=== PATIENT | female | born 1950 | race Caucasian/White ===

== ENCOUNTER → 2021-11-22 13:18 | Outpatient (CLI) | payer MEDICARE, SELFPAY ==
[2021-11-22 15:57] LABS: Add Manual Diff / Slide Review NO; Basophils Absolute Auto 0 /uL (0-100); Basophils Percent Auto 0.6 % (0-2); Eosinophils Absolute Auto 300 /uL (0-450); Hematocrit 39.6 % (36-46); Hemoglobin 13.9 g/dL (12.0-16.0); Lymphocytes Absolute Auto 1100 /uL (1100-4500); Lymphocytes Percent Auto 13.8 % (25-40); Mean Corpuscular HGB Conc 35.1 % (30-36); Mean Corpuscular Hemoglobin 32.7 PG (26-34); Mean Corpuscular Volume 92.9 fL (80-100); Monocytes Absolute Auto 800 /uL (0-900); Monocytes Percent Auto 9.7 % (3-14); Neutrophils Absolute Auto 5800 /uL (1500-7000); Neutrophils Percent Auto 71.9 % (50-75); Platelet Count 300 X10^3/uL (150-400); Red Blood Cell Count 4.26 X10^6/uL (4.0-5.2); Red Cell Distribution Width 13.2 % (11.6-14.8); White Blood Cell Count 8.1 X10^3/uL (4.5-11.0)
[2021-11-22 16:14] LABS: Hemoglobin A1C% w Est Avg Glu 5.5 % (4.0-6.0)
[2021-11-22 17:44] LABS: BUN Creatinine Ratio 15.2 (6-22); Blood Urea Nitrogen 14 mg/dL (7-17); Calcium 8.7 mg/dL (8.4-10.2); Carbon Dioxide 26 mmol/L (22-32); Chloride 107 mmol/L (98-107); Estimated Glomerular Filt Rate > 60 mL/min (>60); Glucose 125 mg/dL (80-110); HEMOLYSIS < 15 (0-50); Potassium 4.2 mmol/L (3.4-5.1); Sodium 138 mmol/L (137-145)
== END ==
PROVIDERS: Referring Provider Orthopaedic Surgery Orthopaedic Surgery of the Spine; Visit Provider Orthopaedic Surgery Orthopaedic Surgery of the Spine
DX: Z01.818 Encounter for other preprocedural examination (principal); R73.9 Hyperglycemia, unspecified; Z01.812 Encounter for preprocedural laboratory examination
CPT/HCPCS: 36415; 80048; 83036; 85025; 93005

== ENCOUNTER 2021-12-10 06:17 | Day surgery (SDC) | payer MEDICARE, SELFPAY ==
[2021-11-30 12:53] VITALS: BMI 33.2
[2021-12-10] VITALS (19 sets, daily range): BP systolic 119–160; BP diastolic 72–101; PULSE 75–90; RESP 10–18; TEMP 36.1–36.6; O2SAT 94–98; BMI 33.2
[2021-12-10 07:02] LABS: COVID19 -Nasal RAPID Negative (Negative)
[2021-12-10] MEDS: LACTATED RINGERS 1,000 ML 42 ML IV ×2 (07:20→10:01)
--- NOTE | 2021-12-10 07:46 | PM.PREOP ---
Pre-operative Note COVID-19 COVID-19 status: Negative Result date/Date tested (Pos, Neg/Pending): 12/09/21 Criteria for continued procedure: Expected advancement of disease process, Possibility delay results in more complex future surgery or treatment, Increased loss of function, Continuing or worsening of significant or severe pain, Deterioration of the patient's condition or overall health and Delay expected to result in less-positive ultimate med/surg outcome Interval Note History & Physical reviewed/Exam performed by Physician: Yes Changes to H&P: No
[2021-12-10] MEDS: CEFAZOLIN 2 GM/100 ML PREMIX 100 ML IV ×2 (08:00→16:18)
--- NOTE | 2021-12-10 08:30 | SUR.OPER ---
Prone on spine table, head in foam head support, padded chest and pelvic supports, gel pad at knees, lower legs supported by pillows; nipples, genitalia and toes free of pressure, arms secured on foam padded arm boards at <90 degrees abduction. Tape over blanket at thigh secured to table. Gel pad between heels.
--- NOTE | 2021-12-10 10:19 | SUR.PREOP ---
12/10/21- notes on consent left and read by Md-patient feels left rib fractured in incident last week,no xrays done. Also noted to Dr De Oliveira, and patinet speaking with him now on issue. Also , pt acknowledged-no blood products per JW. MD's aware.
--- NOTE | 2021-12-10 11:00 | DI.RAD.S_ITS ---
PROCEDURE: XR LUMBAR SPINE 2-3V INDICATIONS: L3-4, L4-5 TLIF ROBOT TECHNIQUE: 2 fluoroscopic intraoperative images obtained. COMPARISON: None. FINDINGS: Two fluoroscopic intraoperative images obtained showing changes of lower lumbar spine fusion. Rods, pedicle screws, and interbody spacers are present. IMPRESSION: Intraprocedural fluoroscopy was provided for guidance and anatomical localization. Please see the procedure report for further details. Dictated by: Ivan Marks M.D. on 12/10/2021 at 21:10 Approved by: Ivan Marks M.D. on 12/10/2021 at 21:13
[2021-12-10] MEDS: BUPIVACAINE 0.25% (PF) 30 ML, EPINEPHrine 0.3 MG INJ (12:24)
[2021-12-10] MEDS: BUPIVACAINE LIPOSOME 266 MG/20 ML VIAL INJ (12:24)
--- NOTE | 2021-12-10 12:35 | PM.OP.1 ---
Operative Date/Time/Diagnoses Date of procedure: 12/10/21 Time of procedure: 07:45 Pre-op diagnosis: 1. L3-4, L4-5 spondylolisthesis 2. L3-4, L4-5 spinal stenosis with neurogenic claudication Post-op diagnosis: same Procedure & Clinicians Procedure: 1. L3-4, L4-5 Postero-lateral and posterior interbody fusion 2. L3-4, L4-5 interbody cage placement. 3. L3-4, L4-5 decompressive laminectomy with bilateral facetecomies 4. L3-4, L4-5 Posterior segmental instrumentation 5. [place] of bone marrow from iliac crest 6. Utilization of microsurgical technique and operating microscope 7. Utilization of robotic assisted navigation Same procedure as scheduled: Yes Indications: Patient has been having chronic back pain and worsening lumbar radiculopathy and neurogenic claudication. Patient failed multiple conservative management with worsening pain weakness and numbness in her lower extremity. Patient has been having difficulty performing activity of daily living. After discussing risks benefits of treatment options, patient elected proceed with surgery. Surgeon: Rich Gutierrez Complex Care Nurse: Esther Constantino Click Yes if Unassisted: No Anesthesia Type: General Operative Notes Closure Type: primary Specimen(s): none sent Prosthetic devices, grafts, tissues, transplants, or devices: Globus CREO MIS screws, Rise cages Applied: catheter Estimated Blood Loss (mL): 150 Blood products transfused: none Procedure in detail: Patient was seen in the preoperative area. Risks and benefits of the surgery was discussed with the patient. Informed consent was obtained from the patient and placed in the chart. Surgical site was marked. Patient was taken to the operative room. General anesthesia was administered. Prophylactic antibiotic was given to the patient less than 30 min before the incision was made. Patient was placed into a prone position on the Wily table. Patient's back was then prepped and draped in the sterile fashion. Time-out was performed at this time. After patient was prepped and draped, patient's PSIS was palpated and marked bilaterally. Small 1 cm incision was made over the PSIS for placement of the reference probes. Two trocar was placed into the PSIS 1 on each side. The reference probe was attached to the trocar of the reference apparatus. At this time the C-arm imaging was used to confirm AP and lateral of L3, L4-L5 vertebrae and merged the C-arm imaging using the [email or web address] robotic navigation system with the CT of the lumbar spine. After successful merging was completed and confirmed, skin marker was used to tamia out the skin incision using the [employer] robotic arm. Bilateral incision was made at this time. Pre templated trajectory was used and guided using the [email or web address] robotic navigation system for bilateral L3 L4, L5 pedicle screw placement. This was done by using the robotic arm to guide the high-speed bur to make a cortical entry point. Next a drill was placed also using the robotic arm and guided using the navigation system drilling partially through bilateral L3, L4, L5 pedicles. Next L3, L4, L5 pedicle screws it was pre templated and measured was placed onto the power swing driver and inserted into the pedicles bilaterally. After all 6 screws were placed C-arm imaging was taken of both AP and lateral to confirm the placement. Excellent placement of the screws were confirmed and a matched precisely with the pre planned screw placement using the navigation system. MARs retractor was inserted using [employer] guidence. Globus MARS retractors was placed inside the incision and docked onto the L3, L4 lamina. Using microsurgical technique and operating microscope, a L3, L4 laminectomy and L3-4, L4-5 facetectomy was performed using a [place] rongeur. Patient was found have severe lateral recess and neural foramen stenosis which was fully decompressed after the laminectomy facetectomy. More than 75% of the facets were removed during the process of decompression rendering L3-4, L4-5 level grossly unstable and required a fusion procedure at the same time. Patient was found have severe central and foraminal stenosis at both levels, which was fully decompressed after the laminectomy facetectomy was completed. The disc space at L3-4, L4-5 was identified, and a total diskectomy was performed at L3-4, L4-5 level. The endplates were decorticated using a rasp and shaver. The total diskectomy and decortication was performed at L3-4, L4-5 level in order to to accomplish a L3-4, L4-5 fusion. The local bone from the laminectomy and facetectomy was saved for local bone grafting. After the total diskectomy and decortication was completed, Trifecta bone graft material was combined with local bone that was harvested earlier. At this time, a separate skin is incision was made over the iliac crest. A Jamshidi needle was inserted into the iliac crest through a separate skin incision. 5 cc of bone marrow aspiration was obtained through the separate skin incision using a Jamshidi needle from the iliac crest. The bone marrow aspiration was combined with local bone and the Trifecta bone grafting material. The bone grafting material was placed into the L3-4, L4-5 interbody space along with expandable cages. One cage each was inserted into the L3-4 L4-5 interbody space along with bone graft material. The cage was expanded to its maximum height using the torque limiting screwdriver. The disc preparation as well as the cage insertion were also performed under navigation guidance. After the cage was placed, AP and lateral C-arm imaging was taken to confirm placement of the cage and excellent position was confirmed. Globus MARS retractor was inserted and docked onto the L3-4, L4-5 posterolateral gutter on the right side. Using the power drill, posterior-lateral decortication was performed at L3-4, L4-5 level until bleeding cortical bone was identified. The remaining bone grafting material was placed into the L3-4, L4-5 posterior lateral gutter he order to accomplish posterolateral fusion at the L3-4, L4-5 level. At this time the tulips were attached to the L3, L4-L5 pedicle screw shanks. After measuring the length of the rods, they were inserted into the t[place]ips of the pedicle screws and locked in place using locking caps and torque limiting screwdriver bilaterally. Total 6 caps and 2 titanium rods was used in order to complete the posterior instrumentation construct. After all the hardware was placed, and confirmed with AP and lateral C-arm imaging, the wound was then irrigated with sterile normal saline and packed with Ray-Mabel gauze for 3 min to accomplish hemostasis. After the gauze was removed the deep fascia was closed with #1 Vicryl suture. The subcutaneous layer was closed with 2-0 Vicryl. The skin was closed with skin kitty. Patient tolerated the procedure well. There were no complications. Neuro monitoring system was used to monitor patient's neurologic status throughout entire procedure. There was no disturbance of the neural monitoring signals throughout the case. Complications: none Post-operative Condition: stable Disposition: PACU Plan for aftercare: Admit to inpatient hospital
[2021-12-10] MEDS: hydrOXYzine 50 MG/ML INJ IM (12:54)
[2021-12-10] MEDS: fentaNYL 100 MCG/2 ML INJ IV ×2 (13:00→13:19)
[2021-12-10] MEDS: HYDROMORPHONE 2 MG INJ IV (13:08)
[2021-12-10] MEDS: OXYCODONE/ACETAMINOPHEN 5/325 TABLET 1 TAB PO (13:56)
--- NOTE | 2021-12-10 15:42 | PC.NURSE ---
Assess- Patient is alert and oriented x3, but sleepy. States that her pain level is 9/10 but she falls right back to sleep. She is tolerating her LR ivf. Dressing to lower back is cdi, she does have a few scabbed area's to her left side of lower back from shingles that are healing. Patient is resting comfortably.
[2021-12-10] MEDS: OXYCODONE IR 5 MG TABLET 10 MG PO ×2 (16:18→20:43)
--- NOTE | 2021-12-10 16:35 | PT.IPNOTE ---
Patient is very sleepy this afternoon after surgery. She is not ready for PT evaluation. Will plan to see her tomorrow for evaluation.
--- NOTE | 2021-12-10 17:03 | PC.NURSE ---
Addendum entered by Dewey Ray R.N. 12/10/21 18:30: Attempted to call dr to advise that RT found no significant findings on EKG. Findings are in chart. Original Note: Pt brought up from PACU. Patient complaining of terrible pain, RN explained that we will wait a bit to give more pain meds, as pt just received some .5mg dilaudid, 100 fentynal, 50 vistaril and 5mg percocet. RT came in to give albuterol but patient refused d/t pain. RN gave 5mg oxycodone as pt was very adamant on needing pain meds and in 10/10 pain. RN educated pt on the fact that pain will not be zero on POD 0 but we will try our best to manage it. Pt has a left rib fx from paddleboarding last week. Pt has a few healed scabs of shingles on left bottom area. dressing from surgery is CDI.
[2021-12-10] MEDS: AMLODIPINE 5 MG TABLET PO (18:11)
[2021-12-10] MEDS: atenoloL 50 MG TABLET PO (18:11)
--- NOTE | 2021-12-10 18:18 | PC.NURSE ---
Addendum entered by Sarahi Acevedo R.N. 12/10/21 18:32: EKG obtained, phoned, with no call back. EKG put in patients chart. Patient is comfortable and denies any pain at this time. Original Note: Patient complains of substernal pain, called . We have a new order for EKG. She did have a fall prior to surgery and fractured a rib on her left side. RT will be up soon to do this.
[2021-12-10] MEDS: ALBUTEROL/IPRATROPIUM 3 ML AMPUL INH (20:25)
[2021-12-10] MEDS: BUDESONIDE 0.5 MG/2 ML NEB INH (20:25)
[2021-12-10] MEDS: DOCUSATE 100 MG CAPSULE PO (20:43)
[2021-12-10] MEDS: PANTOPRAZOLE DR 20 MG TABLET PO (20:43)
[2021-12-10] MEDS: ACETAMINOPHEN 325 MG TABLET 650 MG PO (20:45)
[2021-12-10] MEDS: SENNOSIDES 8.6 MG TABLET 17.2 MG PO (20:45)
[2021-12-11] VITALS (9 sets, daily range): BP systolic 123–142; BP diastolic 49–88; PULSE 71–86; RESP 16–18; TEMP 36.4–37.2; O2SAT 92–97
[2021-12-11] MEDS: OXYCODONE IR 5 MG TABLET 10 MG PO ×6 (00:51→20:11)
[2021-12-11] MEDS: CEFAZOLIN 2 GM/100 ML PREMIX 100 ML IV (00:51)
[2021-12-11] MEDS: DOCUSATE 100 MG CAPSULE PO ×2 (08:07→20:11)
[2021-12-11] MEDS: ALBUTEROL/IPRATROPIUM 3 ML AMPUL INH ×4 (08:30→20:04)
[2021-12-11] MEDS: BUDESONIDE 0.5 MG/2 ML NEB INH ×2 (08:35→20:04)
[2021-12-11 09:24] LABS: Hematocrit 36.3 % (36-46); Hemoglobin 12.6 g/dL (12.0-16.0)
--- NOTE | 2021-12-11 10:10 | PT.IIE ---
Current Diagnoses Spondylolisthesis, lumbar region (12/10/21) Spinal stenosis, lumbar region with neurogenic claudication (12/10/21) Surgery Performed Operation Date: 12/10/21 07:45 Actual Procedures p L3-4, L4-5 TLIF w. posterior instrumentation, L2-3 hemilaminectomy -Robot - Rich Gutierrez MD Surgical History (Last Reviewed 12/11/21 @ 10:39 by Jessica Keith PA-C) History of arthroplasty of left knee (~2019) History of arthroplasty of right knee (2004) History of gynecologic surgery History of orthopedic surgery Hx of cholecystectomy Hx of dilation and curettage Hx of neck surgery (~2012) Hx of tonsillectomy Medical History (Last Reviewed 12/11/21 @ 10:39 by Jessica Keith PA-C) Arthritis Asthma Chronic bronchitis Elevated cholesterol GERD (gastroesophageal reflux disease) HTN (hypertension) Hx of ectopic Jaundice Numbness Pulmonary embolism (2004) SCC (squamous cell carcinoma) Sciatica Spinal stenosis Transfusion of blood product refused for hindu reason Physical Therapy Inpatient Evaluation/Re-Eval M1 PT/OT-IP Prior Functional Status Start: 12/11/21 12:29 Freq: NEEDED Status: Active Protocol: Document 12/11/21 10:10 AB (Rec: 12/11/21 12:42 AB [email or web address]) Medical Review Prior Functional Status Medical History Reviewed Yes Communication able to make needs known Mobility and Gait pt stated that she is independent with all mobilities and ambulation wtihout AD Social History Household Members none Living Arrangements Apartment/Condo Number of Floors (Floors) One Floor Number of Stairs To Enter/Railing? no steps to enter Home Environment Standard Height Toilet,Walk in Shower Home Equipment Front Wheel Walker,Bedside Commode,Hand Held Shower,Grab Bars In Shower Additional Social History Comment pt has an adjustable bed pt's daughter lives in [place] and can assist pt some but will not be able to physically assist pt. Pt stated that her daughter is disabled. M2 PT-IP Current Condition Start: 12/11/21 12:29 Freq: NEEDED Status: Active Protocol: Document 12/11/21 10:10 AB (Rec: 12/11/21 12:42 AB [email or web address]) Physical Therapy Current Condition Current Condition Evaluation Date 12/11/21 Treatment Diagnosis s/p L3-4 TLIF; difficulty in walking Onset Date 12/10/21 M3 PT-IP Subjective Start: 12/11/21 12:29 Freq: NEEDED Status: Active Protocol: Document 12/11/21 10:10 AB (Rec: 12/11/21 12:42 AB [email or web address]) Subjective Physical Therapy Visit Type Type Initial Evaluation Visit Start Time 10:10 Visit Stop Time 10:56 Total Visit Minutes 46 Number of SUSTAINABLE COMMUNITIES DESIGNER Visits 0 Physical Therapy Visit Comments Patient Comments agreeable to do PT M4 PT-IP Mobility and Gait Start: 12/11/21 12:29 Freq: NEEDED Status: Active Protocol: Document 12/11/21 10:10 AB (Rec: 12/11/21 12:42 AB [email or web address]) PT-Bed Mobility Assessment Rolling Type of Rolling Log Rolling Level of Assist Maximal Assistance,1 Person Assistance,2 Person Assistance Supine to Sit Supine to Sit Maximum Assistance,1 Person Assistance,2 Person Assistance ,Head of Bed Elevated Scooting Scooting to Edge of Bed Maximum Assistance PT-Transfer Assessment Sit to and From Stand Sit to and from Stand Maximum Assistance,2 Person Assistance,Use of Upper Extremities Equipment Transfer Assistive Device Bed Rail,Front Wheeled Walker Orthotic/Prosthetic Devices or Brace: No Transfers Transfer Destination Chair Transfer Technique Stand Step Pivot Transfer Ability Level of Assist Maximum Assistance,1 Person Assistance,2 Person Assistance ,Use of Upper Extremities Comments Mobility Comments educated pt regarding back precuations and log roll bed mobility. pt completed log roll supine to sit max A and max cues. able to sit on EOB SBA.. attempted sit to stand x 3 reps and unable to stand despite max A x 2 provided. completed sit to stand again with B hands on FWW and instructed on techniques for sit to stand and required max A x 2 and max cues. step transfer to chair using FWW max a x 2 and max ceus. positioned pt on the chair. call light and table placed within reach. PT-Balance Assessment Sitting Balance and Reactions Static Sitting Balance Ability Good Dynamic Sitting Balance Ability Fair Standing Balance and Reactions Static Standing Balance Ability Poor Dynamic Standing Balance Ability Poor Device Used FWW M5 PT-IP Objective Assessments Start: 12/11/21 12:29 Freq: NEEDED Status: Active Protocol: Document 12/11/21 10:10 AB (Rec: 12/11/21 12:42 AB [email or web address]) Orientation Orientation/Cognition Level of Alertness Alert Orientation Name,Place,Situation Language Function Ability Hard of Hearing Safety Awareness Decreased Safety Awareness Memory Description Short Term Impaired Gross Range of Motion Lower Extremity ROM Assessment Within Functional Limits Strength Lower Extremity Strength Assessment Bilaterally Impaired Comments Strength Comments RLE 4-/5 LLE: 3+/5 Muscle Tone Muscle Tone WNL Yes M6 PT-IP Treatment Start: 12/11/21 12:29 Freq: NEEDED Status: Active Protocol: Document 12/11/21 10:10 AB (Rec: 12/11/21 12:42 AB [email or web address]) Physical Therapy Treatment Education Education Provided Precautions,Weight Bearing Status,Post-Op Packet,Safety M7 PT-IP Assessment and Plan Start: 12/11/21 12:29 Freq: NEEDED Status: Active Protocol: Document 12/11/21 10:10 AB (Rec: 12/11/21 12:42 AB [email or web address]) PT Summary Assessment and Plan Potential Rehabilitation Potential Fair Status of Condition at Evaluation Evolving Summary Impairments Pain,ROM,Strength,Balance, Coordination,Sensation,Tone, Cognition,Bed Mobility, Transfers,Gait,Activity Tolerance Assessment Summary pt requiring max A x 2 and max cues with mobility and unable to ambulate at this time. pt with c/o increase LBP affecting mobility. d/c plan depending on progress but at this time will require SNF rehab. Goals Bed Mobility Goal Standby Assistance Transfer Goal Standby Assistance,Front Wheeled Walker Gait Goal Standby Assistance,Four Wheel Walker Gait Distance 200 Days to Meet Goals 0 Frequency of Treatment Frequency Of Treatment Twice a Day Treatment Plan Physical Therapy Treatment Plan Bed Mobility Training,Transfer Training,Gait Training, Therapeutic Exercise,Balance Retraining,Post Op Education, Discharge Planning,Hot or Cold Pack,Neuromuscular Re-ed, Coordination Retraining,Manual Therapy Precautions Lumbar Precautions Log Roll,No Twisting,Limit Bending,Lifting Restriction of 10 lbs,Gait Belt above Incisional Area Recommendations To Nursing Amount of Assist Needed 2 Person Assist Discharge Recommendations PT Discharge Recommendations SNF Rehab Transportation Needs at Discharge Wheelchair/Cabulance
--- NOTE | 2021-12-11 10:36 | PM.PNPO.1 ---
Subjective Subjective Date Patient Seen: 12/11/21 Time Patient Seen: 07:30 Interval history: Patient is complaining of moderate to severe back pain. She was unable to get up yesterday with PT/OT. She still has a urinary catheter in place. The patient is complaining of left-sided rib pain, she injured her rib just prior to surgery. She feels that her sternum is also somewhat painful after positioning intraoperatively yesterday. She denies chest pain or shortness of breath. Exam Vital Signs (past 8 hours): - 12/11/21 03:37 12/11/21 08:00 12/11/21 08:35 Temperature 97.6 F 97.6 F Pulse Rate 78 71 Respiratory Rate 16 16 Blood Pressure 133/80 140/76 Pulse Oximetry 95 97 96 Oxygen Delivery Method Nasal Cannula Oxygen Flow Rate 2 0 0.5 Oxygen Delivery Method Nasal Cannula Oxygen Flow Rate 0.5 Narrative Exam Narrative: Pleasant 71-year-old female, resting comfortably in bed, no acute distress. Bilateral lower extremities: Motor functions are grossly intact, sensation is grossly intact to light touch, calves are soft and nontender to palpation. The distal end of her sternum, especially on the left side is mildly tender to palpation. No other gross abnormalities noted. Objective Labs Result Diagrams: 12/11/21 08:25 Labs: Laboratory Results - last 24 hr 12/11/21 08:25 Hgb 12.6 Hct 36.3 PFSH Medical History Arthritis Asthma Chronic bronchitis Elevated cholesterol GERD (gastroesophageal reflux disease) HTN (hypertension) Hx of ectopic Jaundice Numbness Pulmonary embolism (2004) SCC (squamous cell carcinoma) Sciatica Spinal stenosis Transfusion of blood product refused for lutheran reason Surgical History History of arthroplasty of left knee (~2019) History of arthroplasty of right knee (2004) History of gynecologic surgery History of orthopedic surgery Hx of cholecystectomy Hx of dilation and curettage Hx of neck surgery (~2012) Hx of tonsillectomy Social History household members: none Smoking Status: Former smoker alcohol intake: current Assessment & Plan Post-op Postoperative Procedures: Procedures Operation Date: 12/10/21 07:45 Actual Procedure Side Surgeon p L3-4, L4-5 TLIF w. posterior instrumentation, L2-3 hemilaminectomy -Robot Rich Gutierrez MD Postoperative day: 1 Postoperative status: marginal pain control Postoperative status narrative: -stable status post L3-4, L4-5 TLIF with posterior instrumentation, L2-3 hemilaminectomy Postoperative plan narrative: -mobilize with PT/OT. No bending, lifting, twisting x6 weeks -encourage multimodal pain management -incentive spirometer ordered, encourage deep breathing exercises. If her ribs/sternum pain is not improving, will consider an x-ray -disposition home versus A SNF in 1-2 days. Her daughter is there to help her at home, but she is disabled and will not be able to provide much help. Quality VTE Deep Vein Thrombosis/Pulmonary Embolism Present on Admission: No
--- NOTE | 2021-12-11 11:58 | CM.DANOTE ---
Addendum entered by Susu Wheatley R.N. 12/11/21 12:59: Met with patient and daughter, Yajaira, in patient's room. According to P.T, patient is max assist, at this time, daughter may not be able to assist her. Brought in Ipad showing ratings for custodial facilities, along with Medicare Choice List. After review, patient's three choices are [facility] first, [facility] in [place] second, and [facility] third. Tiff will fax over referrals. Patient did indicate that she has been vaccinated. For three midnight stay, she should be eligable by by . Original Note: DCP: Case received, EMR reviewed and met with patient. Introduced self and role. Was able to obtain information regarding patient's baseline activity level at home prior to surgery, as well as her current living situation. DCP assessment completed with information currently available. Patient is a 71 year old female who admitted yesterday morning to the care of the hospitalist team. PCP: Dr. Gr. Payer: Confirmed: Medicare/AARP. Patient came to the hospital via private vehicle for a surgical procedure. Patient had L3-4, L4-5 postero-lateral and posterior interbody fusion. Patient has history of spinal stenosis. Jessica Keith, PAC, came by the care management's office this am, and indicated, she does have a daughter at home that is disabled, but to the extent is unknown. Met with patient in her room. She is alert and oriented. She resides in [place] alone, but does have a daughter that is supposed to be staying with her. Patient at baseline, is independent. She indicated, will just hae to see how I do with P.T, and how much my daughter will need to help me. She can go to rehab if needed, for she will be inpatient based upon Medicare criteria, and would need to stay for three midnights. P: DCP to continue to follow. Patient's preference is home, but will need to see how she does with P.T, and how much assistance she will need. If she needs skilled, will go over Medicare Choice List, and facility ratings. Susu Wheatley RN/Edging Supervisor Discharge Planning/Care Management Discharge Assessment Start: 12/11/21 11:55 Freq: Status: Active Protocol: Document 12/11/21 11:56 (Rec: 12/11/21 11:58 [id number]) Discharge Planning Assessment Assigned Supervisor Type Photography Susu Wheatley RN/Edging Supervisor Advance Directives? Yes Advance Directives on File No History Provided By Patient,Medical Record Prior Living Arrangements Apartment/Condo Household Members none Type of transporation used prior to Drives own vehicle admit Independent with ADL's Yes Is patient alert and oriented? Yes Caregiver for Another No Barriers to Discharge Yes Comment Patient indicated, her daughter is disabled, will depend on how much she can do with therapy. Discharge Plan Home Transportation Arrangement Family or friend. If she needs skilled, then would be the facility. Referrals Initiated Other Additional Comment Will see how patient does with P.T. SNF/HH Preference Will bring in list if she does not do well with P.T. Comment Pending P.T. Whiteboard Updated in Patient Room with Yes name and ext. # of Supervisor Type Photography Review Status In Process Next Review Type Continued Stay Review Pre-Anesthesia Assessment Start: 11/30/21 12:53 Freq: Status: Active Protocol: Document 11/30/21 12:53 CAB (Rec: 11/30/21 13:50 CAB [id number]) Pre-Anesthesia Assessment Patient Information Reviewed Via Phone Assessment Assessment Completed With Patient Diagnostic Results BMP/CMP,CBC,EKG Comment Labs/ECG @ [facility] 11/22/21, COVID screen @ [facility]-needs to schedule Primary Care Provider Lianna Sanford Seen Specialist in Last 12 Months Yes Specialist Seen Orthopedist Primary Language Persian Nurse Clinician Required No Height 5 ft 7 in Weight 212 lb Body Mass Index (BMI) 33.2 Hearing Ability Normal Visual Assist Glasses Dentition Type Teeth, Natural Present,Teeth, Missing Barriers to Learning Memory Hx Anesthesia Reactions No Hx Family Anesthesia Reaction No Hx Malignant Hyperthermia No Hx Blood Transfusions No: PT REFUSES BLOOD PRODUCTS - JEHOVAH WITNESS Anesthesia Review Requested Yes: YANELY w/surgeon's office requesting re: Abnormal ECG alcohol intake current alcohol intake frequency holidays/special occasions only Smoking Status Former smoker how long ago did patient quit smoking Quit age 24 Substance Use Type does not use Pain Present Pain Reported Musculoskeletal Symptoms Abnormal Gait,Back Pain, Difficulty Walking,Limited Range of Motion,Numbness History of Falling (Recent or History of No ) Patient is completely paralyzed or No completely immobile Mental Status Oriented to own ability Is patient on oxygen? No Does patient have DOMINGUEZ/SOB Yes: Chronic r/t Asthma Hx Sleep Apnea No Currently Taking a Beta José Miguel Yes: Atenolol Hx Chest Pain Yes: Occasional chest tightness for years Hx SOB Yes: Chronic r/t Asthma Hx Syncope or Dizziness No Anti-Coagulant Therapy No Has a Multiple Sclerosis Nurse No Cardiac Testing No Hx Pacemaker/ICD No Pacemaker Rep Required? No Diet Type At Home Regular dysphagia Yes: Occasional with liquids, solids, feels maybe due to neck surgery Gastrointestinal Symptoms Reflux Bladder Pattern Urgency Urinary Catheter Present No Hx Urinary Self Catheterization No Diabetes No: Pre-diabetes Patient No Lactating No Hx Drug Resistant Organism No Presence of External or Internal Medical Yes: Bilat knee prosthesis, Devices clamp in neck Have you had any close contact with No someone diagnosed with COVID-19? Received a COVID vaccine? Yes Received all doses? Yes Marital Status / Lives With none Prior Living Arrangements Apartment/Condo Support System Child/Children Does the Patient Have Assistance After Yes: Daughters will assist at Surgery [place] Patient Discharge Plan Description Return Home Comment Pt not advised on length of stay per surgeon Feels Safe in Current Environment Yes Been Physically Hurt or Threatened By a No Person in Current Environment Do you have thoughts of harming yourself None or others? Are you currently considering suicide? No Do you have a plan to hurt yourself or No Plan others? Do You Have Any Spiritual Beliefs That Yes: Jehovah Witness - NO May Affect Your HC Choices? BLOOD PRODUCTS Do You Have Any Cultural Practices That No May Affect Your HC Choices? Comment Jehovah Witness Who Can We Speak to About Patient's Care Family, friends Identifying Code for Release of Patient Declines to issue Information Health Care Proxy/Next of Kin Yajaira (daughter) Health Care Proxy Emergency Contact Name Yajaira (daughter) Emergency Contact Advance Directives? Yes Advance Directives on File No Requested Patient Bring Advanced Yes Directives DOS Power of Tester [employer] Yes Power of Tester [employer] Name Pt unsure PAC Instructions Durable medical equipment, Medications to take/avoid, Nasal antibiotic,No ETOH/ petroleum product on skin DOS, NPO,Post-op transportation,Pre -surgical wash,Sensory aids, Sturdy shoes/comfortable clothes,Do not bring valuables and remove jewelry
--- NOTE | 2021-12-11 12:14 | OT.IP.EVAL ---
Current Diagnoses Spondylolisthesis, lumbar region (12/10/21) Spinal stenosis, lumbar region with neurogenic claudication (12/10/21) Surgery Performed Operation Date: 12/10/21 07:45 Actual Procedures p L3-4, L4-5 TLIF w. posterior instrumentation, L2-3 hemilaminectomy -Robot - Rich Gutierrez MD Past Medical History (Last Reviewed 12/11/21 @ 10:39 by Jessica Keith PA-C) Arthritis Asthma Chronic bronchitis Elevated cholesterol GERD (gastroesophageal reflux disease) HTN (hypertension) Hx of ectopic Jaundice Numbness Pulmonary embolism (2004) SCC (squamous cell carcinoma) Sciatica Spinal stenosis Transfusion of blood product refused for buddhist reason Surgical History (Last Reviewed 12/11/21 @ 10:39 by Jesisca Keith PA-C) History of arthroplasty of left knee (~2019) History of arthroplasty of right knee (2004) History of gynecologic surgery History of orthopedic surgery Hx of cholecystectomy Hx of dilation and curettage Hx of neck surgery (~2012) Hx of tonsillectomy Occupational Therapy Inpatient Evaluation/Re-Eval M1 PT/OT-IP Prior Functional Status Start: 12/11/21 12:29 Freq: NEEDED Status: Active Protocol: Document 12/11/21 11:47 [facility] (Rec: 12/11/21 13:28 [facility] [id number]) Medical Review Prior Functional Status Medical History Reviewed Yes Communication able to make needs known Mobility and Gait pt stated that she is independent with all mobilities and ambulation without AD Activities of Daily Living and IADL's Pt states able to do all ADL and IADL but had lots of pain. Social History Household Members none Living Arrangements Apartment/Condo Number of Floors (Floors) One Floor Number of Stairs To Enter/Railing? no steps to enter Home Environment Standard Height Toilet,Walk in Shower Home Equipment Front Wheel Walker,Bedside Commode,Hand Held Shower,Grab Bars In Shower Additional Social History Comment pt has an adjustable bed pt's daughter lives in [place] and can assist pt some but will not be able to physically assist pt. Pt stated that her daughter is disabled. M2 OT-IP Current Condition Start: 12/11/21 13:04 Freq: Status: Active Protocol: Document 12/11/21 11:47 [facility] (Rec: 12/11/21 13:28 [facility] [id number]) Occupational Therapy Current Condition Current Condition Evaluation Date 12/11/21 Treatment Diagnosis S/p L3-4, L4-5 TLIF Diagnosis Onset Date 12/10/21 Post Operative Precautions Lumbar Precautions Log Roll,No Twisting,Limit Bending,Lifting Restriction of 10 lbs,Gait Belt above Incisional Area M3 OT- IP Subjective and Pain Start: 12/11/21 13:04 Freq: Status: Active Protocol: Document 12/11/21 11:47 [facility] (Rec: 12/11/21 13:28 [facility] [id number]) OT- Subjective Occupational Therapy Visit Type Type Initial Evaluation Visit Start Time 11:47 Visit Stop Time 12:14 Total Visit Minutes 27 Occupational Therapy Visit Comments Patient Comments Pt agreed to get up and was already sitting in the recliner when OT came to see the pt. Patient/Caregiver Goals Ideally, pt states wants to go home but realizes may have to go to skilled rehab. OT Pain Assessment Pain When Pain Assessed At Rest Pain Present Pain Present Pain Reported Location Anterior Medial Chest Intensity 8 Scale Used Numeric (0 - 10) M4 OT- IP ADL's Start: 12/11/21 13:04 Freq: Status: Active Protocol: Document 12/11/21 11:47 [facility] (Rec: 12/11/21 13:28 [facility] [id number]) OT [id number] Comments OT Self-Feeding Comments Not at meal time. OT ADL-Grooming Comments OT Grooming Comments Pt states to do later. OT ADL-Oral Care Comments Oral Care Comments Pt states to do later. Able to educate pt if standing for oral care needs, would be best to spit into a cup or hinge at her hips to best follow her back precautions. OT ADL-Dressing General Eval Lower Body Dressing Ability Maximum Assistance Areas Needing Assistance Socks Comments OT Dressing Comments Able to educate and practice use of sock aid and powder blender for LB dressing needs. OT ADL-Toileting General Evaluation Toileting Ability Total Assistance Comments OT Toileting Comments Siu in place. Suggested would benefit from wet wipes, pads/brief at night, BSC, and toilet paper aid. OT ADL-Bathing Comments OT Bathing Comments Sponge bath more appropriate at this time. Pt would also benefit from a shower chair at home to use. M5 OT- IP IADL's Start: 12/11/21 13:04 Freq: Status: Active Protocol: Document 12/11/21 11:47 [facility] (Rec: 12/11/21 13:28 [facility] [id number]) OT-Instrumental Activities of Daily Living Deficits IADL Deficits Identified Deficits Home Safety Awareness Awareness of Need for Assistance at Home Good Awareness Home Safety Comments Pt a little groggy and needing reminders for her back precautions at this time. At this time due to decreased mobility and pain will need assist for all needs. Medication Management Medication Management Comments Prior pt states able to do on her own. Money Management Money Management Comments Prior pt states able to do on her own. Meal Preparation Meal Preparation Comments Prior pt states able to do on her own. Hip Hop Artist Hip Hop Artist Comments Prior pt states able to do on her own. M6 OT- IP Functional Cognition Start: 12/11/21 13:04 Freq: Status: Active Protocol: Document 12/11/21 11:47 [facility] (Rec: 12/11/21 13:28 [facility] [id number]) Cognitive Factors Limiting Selfcare Function Cognitive Ability Level of Alertness Alert Patient Orientation Name,Place,Situation Attention Span Ability Capable of Focused Attention, Capable of Sustained Attention Ability to Follow Commands Able to Follow One Step Commands with Increased Time, Able to Follow One Step Commands with Repetition Memory Description Short Term Impaired Safety Awareness Decreased Recall of Precautions,Underestimates Need for Assistance Cognitive Comments Cognitive Assessment Comments Pt a bit groggy and not able to recall her back precautions . Pt is a little impulsive and needing vc for safety and back precautions. OT- Vision and Hearing OT- Hearing Assessment OT- Hearing Assessment WFL OT- Vision Assessment Visual Acuity Glasses All The Time M7 OT- IP Mobility and Balance Start: 12/11/21 13:04 Freq: Status: Active Protocol: Document 12/11/21 11:47 [facility] (Rec: 12/11/21 13:28 [facility] [id number]) OT-Transfer Assessment Sit to and From Stand Sit to and from Stand Maximum Assistance,1 Person Assistance Comments Mobility Comments MAX AX 1 to stand to FWW and able to take small steps forwards and back and very unsteady on her feet and needing MAX AX 1, MAX AX 1 to also lower her down to the recliner. OT- Balance Assessment Sitting Balance and Reactions Static Sitting Balance Ability Good Dynamic Sitting Balance Ability Good Standing Balance and Reactions Static Standing Balance Ability Poor Dynamic Standing Balance Ability Poor M8 OT- IP Objective Assessments Start: 12/11/21 13:04 Freq: Status: Active Protocol: Document 12/11/21 11:47 [facility] (Rec: 12/11/21 13:28 [facility] [id number]) OT-Muscle Tone Assessment Muscle Tone WNL Yes M9 OT- IP Assessment and Plan Start: 12/11/21 13:04 Freq: Status: Active Protocol: Document 12/11/21 11:47 [facility] (Rec: 12/11/21 13:28 [facility] [id number]) OT Summary Assessment and Plan Potential Rehabilitation Potential Good Analytic Complexity at Evaluation Low Summary OT Impairments Pain,Balance,Functional Cognition,Functional Mobility, Grooming,Dressing,Toileting, Bathing,Toilet Transfers, Shower Transfers,Activity Tolerance Progress Towards Goals Slow Progress due to Pain,Slow Progress due to Activity Tolerance,Slow Progress due to Cognition Assessment Summary Pt low complexity and main barriers are pain, needing extensive assist to stand MAX AX 1 at this time, unsteady on her feet and would benefit from skilled rehab as pt's daughter is disabled and unable to do any lifting to be able to assist the pt. Pt is very motivated to get better. Goals Grooming Goal Independent Dressing Goal Independent Toileting Goal Independent Bathing Goal Independent Toilet Transfer Goal Independent Shower Transfer Goal Independent Frequency of Treatment Frequency Of Treatment Once a Day Treatment Plan OT Treatment Plan ADL Training,Functional Cognition Training,Functional Mobility,Patient/Family Education,Discharge Planning Other Treatment Recommendations and Next Transfer to [facility] with MAX AX 1 Treatment Focus Discharge Recommendations OT Discharge Recommendations SNF Rehab Transportation Needs at Discharge Wheelchair/Cabulance
--- NOTE | 2021-12-11 12:54 | PC.NURSE ---
Addendum entered by Dewey Ray R.N. 12/11/21 17:13: This Rn felt that pt was more confused on 10mg oxycodone. Pt received 650mg tylenol and 5mg oxycodone, will reassess confusion and pain. Addendum entered by Dewey Ray R.N. 12/11/21 16:02: RN checked on pain level, pt states 6/10. 2 minutes later, RN went in to get vitals with LAB DIRECTOR, pt is shaking and shivering stating pain is now 8/10 and seems confused and not comprehending education from staff. Pt is not understanding that pain meds are as needed and getting confused on past conversations and night events. Addendum entered by Dewey Ray R.N. 12/11/21 13:29: pt was found twisting back to grab ice packs, RN educated pt that she cannot twist after back surgery. Pt asked how she was twisting and Rn demonstrated twisting back on self, and pt understood verbally, but rn will continue to check in and make sure pt is following postop instructions. Original Note: Pt requesting pain meds this am with severe pain, Rn explained to pt again that she will have some pain POD 1 and rib fx, but we will try our best to manage it. gave 5mg oxycodone at 0800 d/t 10/10 pain. Pt requested pain meds again 1 hour later, and Rn explained we cannot give pain meds at this time but can try 10mg oxycodone at the next dose. At 1100, PT transferred pt to chair and patient was in 10+/10 pain. RN gave 10mg oxycodone and explained the next dose is at 1400. Pt forgot previous conversation on doses of oxycodone and that we would do 10mg this time. Pt is worried about becoming addicted to meds and wanted 5mg. RN and PT explained that 5mg was not doing enough for her multiple times so 10mg is needed.
--- NOTE | 2021-12-11 13:50 | PT.IPTN ---
Current Diagnoses Spondylolisthesis, lumbar region (12/10/21) Spinal stenosis, lumbar region with neurogenic claudication (12/10/21) Surgery Performed Operation Date: 12/10/21 07:45 Actual Procedures p L3-4, L4-5 TLIF w. posterior instrumentation, L2-3 hemilaminectomy -Robot - Rich Gutierrez MD Physical Therapy Treatment Note M2 PT-IP Current Condition Start: 12/11/21 12:29 Freq: NEEDED Status: Active Protocol: Document 12/11/21 10:10 AB (Rec: 12/11/21 12:42 AB [id number]) Physical Therapy Current Condition Current Condition Evaluation Date 12/11/21 Treatment Diagnosis s/p L3-4 TLIF; difficulty in walking Onset Date 12/10/21 M3 PT-IP Subjective Start: 12/11/21 12:29 Freq: NEEDED Status: Active Protocol: Document 12/11/21 13:50 [facility] (Rec: 12/11/21 14:29 AB [id number]) Subjective Physical Therapy Visit Type Type Treatment Note Visit Start Time 13:50 Visit Stop Time 14:15 Total Visit Minutes 25 Number of EXECUTIVE SEARCH CONSULTANT Visits 0 Physical Therapy Visit Comments Patient Comments agreeable to do PT M4 PT-IP Mobility and Gait Start: 12/11/21 12:29 Freq: NEEDED Status: Active Protocol: Document 12/11/21 13:50 [facility] (Rec: 12/11/21 14:29 AB [id number]) PT-Bed Mobility Assessment Rolling Type of Rolling Log Rolling Level of Assist Maximal Assistance,1 Person Assistance,2 Person Assistance Sit to Supine Sit to Supine Maximum Assistance,1 Person Assistance,2 Person Assistance ,Head of Bed Elevated,Bedrails PT-Transfer Assessment Sit to and From Stand Sit to and from Stand Maximum Assistance,2 Person Assistance,Use of Upper Extremities Equipment Transfer Assistive Device Gait Belt,Front Wheeled Walker Orthotic/Prosthetic Devices or Brace: No Transfers Transfer Destination Bed Transfer Technique ambulated Transfer Ability Level of Assist Maximum Assistance,1 Person Assistance,Use of Upper Extremities Comments Mobility Comments completed sit to stand from chair x 3 attempts requiring max A x 2 and max cues. ambulated to the bed using FWW max A x 1 and max cues. completed log roll sit to supine max A x 1 -2 and max cues. positioned in bed max A and max cues. call ight and table placed within reach. continue to c/o increase LBP -01/28. Gait Assessment Gait Gait Assistance Required: Maximum Assistance,1 Person Assist Distance (Feet) 12 Able to Maintain Weight Bearing Status Yes During Gait Assistive Devices Assistive Device Gait Belt,Front Wheeled Walker Orthotic/Prosthetic Devices or Brace: No Gait Deviations General Gait Pattern Decreased Stride Length, Decreased Feet Clearance,Step- to Gait Factors Limiting Gait Function Factors Limiting Gait Function Decreased Activity Tolerance, Decreased Strength,Difficulty Following Directions,Limited Range of Motion,Pain,Poor Balance,Poor Safety Awareness M5 PT-IP Objective Assessments Start: 12/11/21 12:29 Freq: NEEDED Status: Active Protocol: Document 12/11/21 10:10 AB (Rec: 12/11/21 12:42 AB [id number]) Orientation Orientation/Cognition Level of Alertness Alert Orientation Name,Place,Situation Language Function Ability Hard of Hearing Safety Awareness Decreased Safety Awareness Memory Description Short Term Impaired Gross Range of Motion Lower Extremity ROM Assessment Within Functional Limits Strength Lower Extremity Strength Assessment Bilaterally Impaired Comments Strength Comments RLE 4-/5 LLE: 3+/5 Muscle Tone Muscle Tone WNL Yes M6 PT-IP Treatment Start: 12/11/21 12:29 Freq: NEEDED Status: Active Protocol: Document 12/11/21 13:50 [facility] (Rec: 12/11/21 14:29 AB [id number]) Physical Therapy Treatment Education Education Provided Precautions,Safety M7 PT-IP Assessment and Plan Start: 12/11/21 12:29 Freq: NEEDED Status: Active Protocol: Document 12/11/21 13:50 [facility] (Rec: 12/11/21 14:29 AB [id number]) PT Summary Assessment and Plan Potential Rehabilitation Potential Fair Summary Impairments Pain,ROM,Strength,Balance, Coordination,Sensation,Tone, Cognition,Bed Mobility, Transfers,Gait,Activity Tolerance Progress Towards Goals Slow Progress due to Pain Assessment Summary pt continues to require max A x 2 and max cues with mobility using FWW and continues to c/ o increase LBP affecting function. pt will require SNF rehab to improve strength and mobility. Goals Bed Mobility Goal Standby Assistance Transfer Goal Standby Assistance,Front Wheeled Walker Gait Goal Standby Assistance,Four Wheel Walker Gait Distance 200 Days to Meet Goals 0 Frequency of Treatment Frequency Of Treatment Twice a Day Treatment Plan Physical Therapy Treatment Plan Bed Mobility Training,Transfer Training,Gait Training, Therapeutic Exercise,Balance Retraining,Post Op Education, Discharge Planning,Hot or Cold Pack,Neuromuscular Re-ed, Coordination Retraining,Manual Therapy Precautions Lumbar Precautions Log Roll,No Twisting,Limit Bending,Lifting Restriction of 10 lbs,Gait Belt above Incisional Area Recommendations To Nursing Amount of Assist Needed 2 Person Assist Discharge Recommendations PT Discharge Recommendations SNF Rehab Transportation Needs at Discharge Wheelchair/Cabulance
--- NOTE | 2021-12-11 15:50 | PC.NURSE ---
Patient received pain medication at 1426 by bhavin WALTER. She states that her pain level is down to a 6.
[2021-12-11] MEDS: atenoloL 50 MG TABLET PO (17:06)
[2021-12-11] MEDS: AMLODIPINE 5 MG TABLET PO (17:07)
[2021-12-11] MEDS: ACETAMINOPHEN 325 MG TABLET 650 MG PO (17:08)
[2021-12-11] MEDS: SENNOSIDES 8.6 MG TABLET 17.2 MG PO (20:11)
[2021-12-11] MEDS: PANTOPRAZOLE DR 20 MG TABLET PO (20:11)
[2021-12-11] MEDS: hydrOXYzine pamoate 25 MG CAPSULE PO (20:13)
[2021-12-12] VITALS (9 sets, daily range): BP systolic 119–149; BP diastolic 71–78; PULSE 73–85; RESP 14–18; TEMP 36.4–37.1; O2SAT 92–95
[2021-12-12] MEDS: ACETAMINOPHEN 325 MG TABLET 650 MG PO (00:55)
[2021-12-12] MEDS: hydrOXYzine pamoate 25 MG CAPSULE PO ×3 (00:55→09:13)
[2021-12-12] MEDS: OXYCODONE IR 5 MG TABLET 10 MG PO ×6 (00:55→18:20)
--- NOTE | 2021-12-12 07:28 | PM.PNPO.1 ---
Subjective Subjective Date Patient Seen: 12/12/21 Time Patient Seen: 07:28 Interval history: Slow progress w/ PT, will need SNF at discharge. SHARONA has started this process. On visit this morning, she is sitting up in bed comfortably, enjoying the sunshine. Exam Vital Signs (past 8 hours): - 12/12/21 01:00 12/12/21 05:19 Temperature 98.5 F 97.6 F Pulse Rate 76 73 Respiratory Rate 16 18 Blood Pressure 136/77 119/78 Pulse Oximetry 94 93 Oxygen Flow Rate 0 0 Oxygen Delivery Method Room Air Oxygen Flow Rate 0 Narrative Exam Narrative: 5/5 strength in hip flexors, quadriceps, hamstrings, DF, PF, EHL bilaterally. Sensation to light touch intact in BLE. Calves soft, compressible, nontender without palpable cords or masses. Low back dressing placed intraoperatively is CDI. Objective Labs Result Diagrams: 12/11/21 08:25 Labs: Laboratory Results - last 24 hr 12/11/21 08:25 Hgb 12.6 Hct 36.3 PFSH Medical History Arthritis Asthma Chronic bronchitis Elevated cholesterol GERD (gastroesophageal reflux disease) HTN (hypertension) Hx of ectopic Jaundice Numbness Pulmonary embolism (2004) SCC (squamous cell carcinoma) Sciatica Spinal stenosis Transfusion of blood product refused for zoroastrianism reason Surgical History History of arthroplasty of left knee (~2019) History of arthroplasty of right knee (2004) History of gynecologic surgery History of orthopedic surgery Hx of cholecystectomy Hx of dilation and curettage Hx of neck surgery (~2012) Hx of tonsillectomy Social History household members: none Smoking Status: Former smoker alcohol intake: current Assessment & Plan Post-op Assessment and plan (1) S/P lumbar fusion: Assessment and Plan narrative: D/C [facility]. Continue PT. Plan for d/c to SNF tomorrow. Postoperative Procedures: Procedures Operation Date: 12/10/21 07:45 Actual Procedure Side Surgeon p L3-4, L4-5 TLIF w. posterior instrumentation, L2-3 hemilaminectomy -Robot Rich Gutierrez MD Postoperative day: 2 Quality VTE Deep Vein Thrombosis/Pulmonary Embolism Present on Admission: No
[2021-12-12] MEDS: DOCUSATE 100 MG CAPSULE PO ×2 (08:39→20:14)
[2021-12-12] MEDS: MAGNESIUM HYDROXIDE 30 ML UDC PO (08:39)
[2021-12-12] MEDS: BUDESONIDE 0.5 MG/2 ML NEB INH ×2 (08:54→20:25)
[2021-12-12] MEDS: ALBUTEROL/IPRATROPIUM 3 ML AMPUL INH ×3 (08:54→20:25)
[2021-12-12] MEDS: BISACODYL 10 MG SUPP PR (10:46)
--- NOTE | 2021-12-12 11:22 | PC.NURSE ---
Day shift: Pt did not want the Siu cath removed yet.
--- NOTE | 2021-12-12 11:36 | PT.IPTN ---
Current Diagnoses Spondylolisthesis, lumbar region (12/10/21) Spinal stenosis, lumbar region with neurogenic claudication (12/10/21) Arthrodesis status (12/10/21) Surgery Performed Operation Date: 12/10/21 07:45 Actual Procedures p L3-4, L4-5 TLIF w. posterior instrumentation, L2-3 hemilaminectomy -Robot - Rich Gutierrez MD Physical Therapy Treatment Note M2 PT-IP Current Condition Start: 12/11/21 12:29 Freq: NEEDED Status: Active Protocol: Document 12/11/21 10:10 AB (Rec: 12/11/21 12:42 AB [id number]) Physical Therapy Current Condition Current Condition Evaluation Date 12/11/21 Treatment Diagnosis s/p L3-4 TLIF; difficulty in walking Onset Date 12/10/21 M3 PT-IP Subjective Start: 12/11/21 12:29 Freq: NEEDED Status: Active Protocol: Document 12/12/21 11:27 [place] (Rec: 12/12/21 12:32 [place] [id number]) Subjective Physical Therapy Visit Type Type Treatment Note Visit Start Time 11:27 Visit Stop Time 11:36 Total Visit Minutes 9 Notes co-treat w/ OT Number of RFID TECHNICIAN Visits 1 Physical Therapy Visit Comments Patient Comments agreeable to do PT M4 PT-IP Mobility and Gait Start: 12/11/21 12:29 Freq: NEEDED Status: Active Protocol: Document 12/12/21 11:27 [place] (Rec: 12/12/21 12:32 [place] [id number]) PT-Bed Mobility Assessment Rolling Type of Rolling Log Rolling Level of Assist Minimal Assistance,1 Person Assistance Supine to Sit Supine to Sit Moderate Assistance,2 Person Assistance,Bedrails Scooting Scooting to Edge of Bed Contact Guard Assistance PT-Transfer Assessment Sit to and From Stand Sit to and from Stand Moderate Assistance,2 Person Assistance,Use of Upper Extremities Equipment Transfer Assistive Device Gait Belt,Front Wheeled Walker Orthotic/Prosthetic Devices or Brace: No Transfers Transfer Destination Bedside Commode Transfer Technique Stand Step Pivot Transfer Ability Level of Assist Moderate Assistance,2 Person Assistance,Use of Upper Extremities Comments Mobility Comments Pt in bed upon arrival and wanting to use BSC. Min A for logroll, Mod A x2 for sidelying<>sit. Pt calls out in pain when transitioning from sidelying<>sit. Able to scoot EOB. Pt sit<>stand Mod A x2 w/ FWW from raised bed. Mod A x2 w/ cues for seuqnecing and FWW mgmt for stand step pivot from bed to BSC. Mod A for slow descent. Pt left on BSC w/ OT attending . Gait Assessment Gait Gait Assistance Required: Moderate Assistance,2 Person Assist Distance (Feet) 3 Able to Maintain Weight Bearing Status Yes During Gait Assistive Devices Assistive Device Gait Belt,Front Wheeled Walker Orthotic/Prosthetic Devices or Brace: No Gait Deviations General Gait Pattern Decreased Stride Length, Decreased Feet Clearance,Step- to Gait Factors Limiting Gait Function Factors Limiting Gait Function Decreased Activity Tolerance, Decreased Strength,Difficulty Following Directions,Limited Range of Motion,Pain,Poor Balance,Poor Safety Awareness Comments Gait Comments Please refer to mobility section for details. PT-Balance Assessment Sitting Balance and Reactions Static Sitting Balance Ability Good Dynamic Sitting Balance Ability Fair Standing Balance and Reactions Static Standing Balance Ability Poor Dynamic Standing Balance Ability Poor Device Used FWW M5 PT-IP Objective Assessments Start: 12/11/21 12:29 Freq: NEEDED Status: Active Protocol: Document 12/11/21 10:10 AB (Rec: 12/11/21 12:42 AB [id number]) Orientation Orientation/Cognition Level of Alertness Alert Orientation Name,Place,Situation Language Function Ability Hard of Hearing Safety Awareness Decreased Safety Awareness Memory Description Short Term Impaired Gross Range of Motion Lower Extremity ROM Assessment Within Functional Limits Strength Lower Extremity Strength Assessment Bilaterally Impaired Comments Strength Comments RLE 4-/5 LLE: 3+/5 Muscle Tone Muscle Tone WNL Yes M6 PT-IP Treatment Start: 12/11/21 12:29 Freq: NEEDED Status: Active Protocol: Document 12/12/21 11:27 [place] (Rec: 12/12/21 12:32 [place] [id number]) Physical Therapy Treatment Education Education Provided Precautions,Safety M7 PT-IP Assessment and Plan Start: 12/11/21 12:29 Freq: NEEDED Status: Active Protocol: Document 12/12/21 11:27 [place] (Rec: 12/12/21 12:32 KS [id number]) PT Summary Assessment and Plan Potential Rehabilitation Potential Fair Summary Impairments Pain,ROM,Strength,Balance, Coordination,Sensation,Tone, Cognition,Bed Mobility, Transfers,Gait,Activity Tolerance Progress Towards Goals Slow Progress due to Pain,Slow Progress due to Activity Tolerance Assessment Summary Pt showed some improvement w/ bed mobility today, requiring Min A for logroll and Mod A x2 for sup<>sit but still requiring Mod to Max A x2 for sit<>stand and stand step pivot for transfers w/ FWW. Pt limited by pain and weakness and will require SNF to improve functional mobility independence. Goals Bed Mobility Goal Standby Assistance Transfer Goal Standby Assistance,Front Wheeled Walker Gait Goal Standby Assistance,Four Wheel Walker Gait Distance 200 Days to Meet Goals 0 Frequency of Treatment Frequency Of Treatment Twice a Day Treatment Plan Physical Therapy Treatment Plan Bed Mobility Training,Transfer Training,Gait Training, Therapeutic Exercise,Balance Retraining,Post Op Education, Discharge Planning,Hot or Cold Pack,Neuromuscular Re-ed, Coordination Retraining,Manual Therapy Precautions Lumbar Precautions Log Roll,No Twisting,Limit Bending,Lifting Restriction of 10 lbs,Gait Belt above Incisional Area Recommendations To Nursing Amount of Assist Needed 2 Person Assist Discharge Recommendations PT Discharge Recommendations SNF Rehab Transportation Needs at Discharge Wheelchair/Cabulance
--- NOTE | 2021-12-12 12:13 | OT.IP.TRT ---
Current Diagnoses Spondylolisthesis, lumbar region (12/10/21) Spinal stenosis, lumbar region with neurogenic claudication (12/10/21) Arthrodesis status (12/10/21) Surgery Performed Operation Date: 12/10/21 07:45 Actual Procedures p L3-4, L4-5 TLIF w. posterior instrumentation, L2-3 hemilaminectomy -Robot - Rich Gutierrez MD Occupational Therapy Treatment Note M2 OT-IP Current Condition Start: 12/11/21 13:04 Freq: Status: Active Protocol: Document 12/11/21 11:47 [facility] (Rec: 12/11/21 13:28 [facility] [id number]) Occupational Therapy Current Condition Current Condition Evaluation Date 12/11/21 Treatment Diagnosis S/p L3-4, L4-5 TLIF Diagnosis Onset Date 12/10/21 Post Operative Precautions Lumbar Precautions Log Roll,No Twisting,Limit Bending,Lifting Restriction of 10 lbs,Gait Belt above Incisional Area M3 OT- IP Subjective and Pain Start: 12/11/21 13:04 Freq: Status: Active Protocol: Document 12/12/21 12:31 [facility] (Rec: 12/12/21 12:44 [facility] [id number]) OT- Subjective Occupational Therapy Visit Type Type Treatment Note Visit Start Time 11:25 Visit Stop Time 12:13 Total Visit Minutes 48 Occupational Therapy Visit Comments Patient Comments Pt wanting to try to use the BSC. Patient/Caregiver Goals TO get better and be able to care for herself. OT Pain Assessment Pain When Pain Assessed At Rest Pain Present Pain Present Denied Pain M4 OT- IP ADL's Start: 12/11/21 13:04 Freq: Status: Active Protocol: Document 12/12/21 12:31 [facility] (Rec: 12/12/21 12:44 [facility] [id number]) OT ADL-Grooming General Evaluation Grooming Ability Independent Comments OT Grooming Comments While seated. OT ADL-Oral Care General Eval Oral Care Ability Independent Comments Oral Care Comments While seated. OT ADL-Dressing General Eval Lower Body Dressing Ability Maximum Assistance Areas Needing Assistance Underpants/Brief Comments OT Dressing Comments Assist to help thread the brief over her feet and assist to help to pull up over her hips. OT ADL-Toileting General Evaluation Toileting Ability Total Assistance Comments OT Toileting Comments Siu in place and assist for hygiene and brief management needs. OT ADL-Bathing General Evaluation Bathing Ability Moderate Assistance Comments OT Bathing Comments Pt able to sponge off her upper body while seated on the BSC. M5 OT- IP IADL's Start: 12/11/21 13:04 Freq: Status: Active Protocol: Document 12/11/21 11:47 [facility] (Rec: 12/11/21 13:28 [facility] [id number]) OT-Instrumental Activities of Daily Living Deficits IADL Deficits Identified Deficits Home Safety Awareness Awareness of Need for Assistance at Home Good Awareness Home Safety Comments Pt a little groggy and needing reminders for her back precautions at this time. At this time due to decreased mobility and pain will need assist for all needs. Medication Management Medication Management Comments Prior pt states able to do on her own. Money Management Money Management Comments Prior pt states able to do on her own. Meal Preparation Meal Preparation Comments Prior pt states able to do on her own. Cycle Repairer Cycle Repairer Comments Prior pt states able to do on her own. M6 OT- IP Functional Cognition Start: 12/11/21 13:04 Freq: Status: Active Protocol: Document 12/12/21 12:31 [facility] (Rec: 12/12/21 12:44 [facility] [id number]) Cognitive Factors Limiting Selfcare Function Cognitive Ability Level of Alertness Alert Patient Orientation Name,Place,Situation Attention Span Ability Capable of Focused Attention, Capable of Sustained Attention Ability to Follow Commands Able to Follow One Step Commands with Increased Time, Able to Follow One Step Commands with Repetition Safety Awareness Decreased Recall of Precautions Cognitive Comments Cognitive Assessment Comments Pt getting more drowsy at the end of the session and still needing concrete cues to follow and not remembering her back precautions. M7 OT- IP Mobility and Balance Start: 12/11/21 13:04 Freq: Status: Active Protocol: Document 12/12/21 12:31 [facility] (Rec: 12/12/21 12:44 [facility] [id number]) OT-Transfer Assessment Sit to and From Stand Sit to and from Stand Moderate Assistance,2 Person Assistance Transfers Transfer Ability Moderate Assistance,2 Person Assistance Technique Transfer Destination Bed,Bedside Commode,Chair Transfer Technique Stand Step Pivot Devices Transfer Assistive Devices Gait Belt,Front Wheeled Walker Comments Mobility Comments MODA X 2 to stand and for transfers with FWW. OT- Balance Assessment Sitting Balance and Reactions Static Sitting Balance Ability Good Dynamic Sitting Balance Ability Good Standing Balance and Reactions Static Standing Balance Ability Poor Dynamic Standing Balance Ability Poor M8 OT- IP Objective Assessments Start: 12/11/21 13:04 Freq: Status: Active Protocol: Document 12/11/21 11:47 [facility] (Rec: 12/11/21 13:28 [facility] [id number]) OT-Muscle Tone Assessment Muscle Tone WNL Yes M9 OT- IP Assessment and Plan Start: 12/11/21 13:04 Freq: Status: Active Protocol: Document 12/12/21 12:31 [facility] (Rec: 12/12/21 12:44 [facility] [id number]) OT Summary Assessment and Plan Potential Rehabilitation Potential Good Analytic Complexity at Evaluation Low Summary OT Impairments Pain,Balance,Functional Cognition,Functional Mobility, Grooming,Dressing,Toileting, Bathing,Toilet Transfers, Shower Transfers,Activity Tolerance Progress Towards Goals Progressing Toward Goals,Slow Progress due to Medical Issues Assessment Summary Pt needing extensive 2 person assist for ADl and mobility needs and to great for her family to assist at this time and best to go to skilled rehab. Pt will greatly from more practice with back precautions for ADL and mobility needs. Goals Grooming Goal Independent Dressing Goal Independent Toileting Goal Independent Bathing Goal Independent Toilet Transfer Goal Independent Shower Transfer Goal Independent Frequency of Treatment Frequency Of Treatment Once a Day Treatment Plan OT Treatment Plan ADL Training,Functional Cognition Training,Functional Mobility,Patient/Family Education,Discharge Planning Other Treatment Recommendations and Next LB dressing practice Treatment Focus Discharge Recommendations OT Discharge Recommendations SNF Rehab Transportation Needs at Discharge Wheelchair/Cabulance
--- NOTE | 2021-12-12 12:20 | PT.IPTN ---
Current Diagnoses Spondylolisthesis, lumbar region (12/10/21) Spinal stenosis, lumbar region with neurogenic claudication (12/10/21) Arthrodesis status (12/10/21) Surgery Performed Operation Date: 12/10/21 07:45 Actual Procedures p L3-4, L4-5 TLIF w. posterior instrumentation, L2-3 hemilaminectomy -Robot - Rich Gutierrez MD Physical Therapy Treatment Note M2 PT-IP Current Condition Start: 12/11/21 12:29 Freq: NEEDED Status: Active Protocol: Document 12/11/21 10:10 AB (Rec: 12/11/21 12:42 AB [id number]) Physical Therapy Current Condition Current Condition Evaluation Date 12/11/21 Treatment Diagnosis s/p L3-4 TLIF; difficulty in walking Onset Date 12/10/21 M3 PT-IP Subjective Start: 12/11/21 12:29 Freq: NEEDED Status: Active Protocol: Document 12/12/21 12:02 [place] (Rec: 12/12/21 13:01 [place] [id number]) Subjective Physical Therapy Visit Type Type Treatment Note Visit Start Time 12:02 Visit Stop Time 12:20 Total Visit Minutes 18 Notes partial co-treat w/ OT Number of ACROBATIC DANCER Visits 2 Physical Therapy Visit Comments Patient Comments agreeable to do PT M4 PT-IP Mobility and Gait Start: 12/11/21 12:29 Freq: NEEDED Status: Active Protocol: Document 12/12/21 12:02 [place] (Rec: 12/12/21 13:01 [place] [id number]) PT-Bed Mobility Assessment Scooting Scooting to Edge of Bed Contact Guard Assistance PT-Transfer Assessment Sit to and From Stand Sit to and from Stand Moderate Assistance,2 Person Assistance,Use of Upper Extremities Equipment Transfer Assistive Device Gait Belt,Front Wheeled Walker Orthotic/Prosthetic Devices or Brace: No Transfers Transfer Destination Chair Transfer Technique Stand Step Pivot Transfer Ability Level of Assist Moderate Assistance,2 Person Assistance,Use of Upper Extremities Comments Mobility Comments Pt on BSC upon arrival and wanting to transfer to chair. Mod A x2 for sit<>stand w/ FWW and stand step pivot from BSC to chair w/ cues for sequencing and FWW mgmt. Pt very lethargic following pain meds and unable to tolerate further ambulation but did complete LE exercises in chair w/ cues to stay awake. Pt left in chair w/ all needs in reach. Gait Assessment Gait Gait Assistance Required: Moderate Assistance,2 Person Assist Distance (Feet) 3 Able to Maintain Weight Bearing Status Yes During Gait Assistive Devices Assistive Device Gait Belt,Front Wheeled Walker Orthotic/Prosthetic Devices or Brace: No Gait Deviations General Gait Pattern Decreased Stride Length, Decreased Feet Clearance,Step- to Gait Factors Limiting Gait Function Factors Limiting Gait Function Decreased Activity Tolerance, Decreased Strength,Difficulty Following Directions,Limited Range of Motion,Pain,Poor Balance,Poor Safety Awareness Comments Gait Comments Please refer to mobility section for details. PT-Balance Assessment Sitting Balance and Reactions Static Sitting Balance Ability Good Dynamic Sitting Balance Ability Fair Standing Balance and Reactions Static Standing Balance Ability Fair Dynamic Standing Balance Ability Poor Device Used FWW M5 PT-IP Objective Assessments Start: 12/11/21 12:29 Freq: NEEDED Status: Active Protocol: Document 12/11/21 10:10 AB (Rec: 12/11/21 12:42 AB [id number]) Orientation Orientation/Cognition Level of Alertness Alert Orientation Name,Place,Situation Language Function Ability Hard of Hearing Safety Awareness Decreased Safety Awareness Memory Description Short Term Impaired Gross Range of Motion Lower Extremity ROM Assessment Within Functional Limits Strength Lower Extremity Strength Assessment Bilaterally Impaired Comments Strength Comments RLE 4-/5 LLE: 3+/5 Muscle Tone Muscle Tone WNL Yes M6 PT-IP Treatment Start: 12/11/21 12:29 Freq: NEEDED Status: Active Protocol: Document 12/12/21 12:02 [place] (Rec: 12/12/21 13:01 [place] [id number]) Physical Therapy Treatment Exercises Exercises Ankle Pumps,Gluteal Sets,Quad Sets Education Education Provided Precautions,Safety Other Treatments Other Treatment Performed Seated marching M7 PT-IP Assessment and Plan Start: 12/11/21 12:29 Freq: NEEDED Status: Active Protocol: Document 12/12/21 12:02 [place] (Rec: 12/12/21 13:01 [place] [id number]) PT Summary Assessment and Plan Potential Rehabilitation Potential Fair Summary Impairments Pain,ROM,Strength,Balance, Coordination,Sensation,Tone, Cognition,Bed Mobility, Transfers,Gait,Activity Tolerance Progress Towards Goals Slow Progress due to Pain,Slow Progress due to Activity Tolerance Assessment Summary Pt continues to be limited by pain, weakness, and low activity tolerance. Required Mod A x2 for sit<>stand and stand step pivot from BSC to chair. She needs cues for leg sequencing and FWW mgmt during transfer as well as hand placement and slow controlled decsent when sitting. Able to complete LE exercises in chair , but required multiple verbal cues to stay awake and perform correctly. At this time, pt will require SNF to improve strength and functional mobility independence. Goals Bed Mobility Goal Standby Assistance Transfer Goal Standby Assistance,Front Wheeled Walker Gait Goal Standby Assistance,Four Wheel Walker Gait Distance 200 Days to Meet Goals 0 Frequency of Treatment Frequency Of Treatment Twice a Day Treatment Plan Physical Therapy Treatment Plan Bed Mobility Training,Transfer Training,Gait Training, Therapeutic Exercise,Balance Retraining,Post Op Education, Discharge Planning,Hot or Cold Pack,Neuromuscular Re-ed, Coordination Retraining,Manual Therapy Precautions Lumbar Precautions Log Roll,No Twisting,Limit Bending,Lifting Restriction of 10 lbs,Gait Belt above Incisional Area Recommendations To Nursing Amount of Assist Needed 2 Person Assist Discharge Recommendations PT Discharge Recommendations SNF Rehab Transportation Needs at Discharge Wheelchair/Cabulance
--- NOTE | 2021-12-12 13:37 | PC.NURSE ---
Day shift: Pt refused Siu cath removal again at this time (1330).
--- NOTE | 2021-12-12 14:15 | CM.DPC ---
Addendum entered by Sol Verdin R.N. 12/12/21 16:14: [facility] pt tomorrow for SNF placement. [facility] is looking at a time for transport. COVID booster is needed and DCP requested that PA or MD put the order in for that. Pt agreeable to leaving and is wanting to get stronger. DCP to continue to follow case. Sol Verdin RN/NELDAP Original Note: DCP Cont: Referral faxed to [facility] as pt is obs and would need to go on a COVID waiver. Pt is agreeable as her choices may not be able to work out. Pt cannot pay privately. Awaiting decision from [facility]. Sol Verdin RN/DCP
[2021-12-12] MEDS: AMLODIPINE 5 MG TABLET PO (17:03)
[2021-12-12] MEDS: atenoloL 50 MG TABLET PO (17:03)
[2021-12-12] MEDS: COVID-19 VACC #3, MRNA(MOD) 50 MCG/0.25 ML VIAL IM (17:03)
[2021-12-12] MEDS: PANTOPRAZOLE DR 20 MG TABLET PO (20:14)
[2021-12-12] MEDS: SENNOSIDES 8.6 MG TABLET 17.2 MG PO (20:14)
[2021-12-13] VITALS: BP 142/72; PULSE 78; RESP 16; TEMP 36.6; O2SAT 94
[2021-12-13] MEDS: hydrOXYzine pamoate 25 MG CAPSULE PO ×3 (00:12→13:32)
[2021-12-13] MEDS: ACETAMINOPHEN 325 MG TABLET 650 MG PO (00:12)
[2021-12-13] MEDS: BISACODYL 10 MG SUPP PR (00:13)
[2021-12-13 06:00] VITALS: BP 129/63; PULSE 72; RESP 16; TEMP 36.3; O2SAT 93
[2021-12-13 08:11] VITALS: O2SAT 94
[2021-12-13] MEDS: BUDESONIDE 0.5 MG/2 ML NEB INH (08:11)
[2021-12-13] MEDS: ALBUTEROL/IPRATROPIUM 3 ML AMPUL INH (08:11)
[2021-12-13 08:15] VITALS: BP 135/67; PULSE 68; RESP 18; TEMP 37.3; O2SAT 100
[2021-12-13] MEDS: MAGNESIUM HYDROXIDE 30 ML UDC PO (08:55)
[2021-12-13] MEDS: DOCUSATE 100 MG CAPSULE PO (08:55)
[2021-12-13] MEDS: OXYCODONE IR 5 MG TABLET 10 MG PO ×2 (08:56→13:30)
--- NOTE | 2021-12-13 09:01 | PM.DS.1 ---
History of Present Illness History of Present Illness Date Patient Seen: 12/13/21 Time Patient Seen: 09:01 Chief complaint: OPB Narrative: Operative Date/Time/Diagnoses Date of procedure: 12/10/21 Time of procedure: 07:45 Pre-op diagnosis: 1. L3-4, L4-5 spondylolisthesis 2. L3-4, L4-5 spinal stenosis with neurogenic claudication Post-op diagnosis: same Procedure & Clinicians Procedure: 1. L3-4, L4-5 Postero-lateral and posterior interbody fusion 2. L3-4, L4-5 interbody cage placement. 3. L3-4, L4-5 decompressive laminectomy with bilateral facetecomies 4. L3-4, L4-5 Posterior segmental instrumentation 5. [place] of bone marrow from iliac crest 6. Utilization of microsurgical technique and operating microscope 7. Utilization of robotic assisted navigation Same procedure as scheduled: Yes Indications: Patient has been having chronic back pain and worsening lumbar radiculopathy and neurogenic claudication. Patient failed multiple conservative management with worsening pain weakness and numbness in her lower extremity.? Patient has been having difficulty performing activity of daily living.? After discussing risks benefits of treatment options, patient elected proceed with surgery. Surgeon: Rich Gutierrez Magazine Designer: Esther Constantino Click Yes if Unassisted: No Anesthesia Type: General Operative Notes Closure Type: primary Specimen(s): none sent Prosthetic devices, grafts, tissues, transplants, or devices: Globus CREO MIS screws, Rise cages Applied: catheter Estimated Blood Loss (mL): 150 Blood products transfused: none Discharge Providers Provider Discharge Date: 12/13/21 Primary care physician: Doctor Gale MD Consults: 12/06/21 08:45 Consult to Anesthesiology Routine Comment: Consulting Provider: Anesthesiologist Reason for consultation: YANELY pierce/surgeon's office requesting re: Abnormal ECG 12/10/21 14:01 Consult to Occupational Therapy Evaluate & Treat Comment: Physician Instructions: Evaluate and treat Consult to Physical Therapy Evaluate & Treat Comment: Physician Instructions: Evaluate and Treat Discharge provider: Esther Constantino PA-C Summary Hospital Course Discharge Diagnosis: s/p lumbar fusion Hospital Course: Ms Montez's hospital course was remarkable for slow progress with PT. Throughout their work with her, the physical therapists determined she would be best served by further rehab at a SNF prior to going home. On POD# 3 she was feeling well. She was eating and voiding without difficulty and her pain was well-controlled with oral medications. Exam Vital Signs (past 8 hours): - 12/13/21 06:00 12/13/21 08:11 12/13/21 08:15 Temperature 97.4 F L 99.2 F Pulse Rate 72 68 Respiratory Rate 16 18 Blood Pressure 129/63 135/67 Pulse Oximetry 93 94 100 Oxygen Delivery Method Room Air Oxygen Flow Rate 0 0 Oxygen Delivery Method Room Air Oxygen Flow Rate 0 Narrative Exam Narrative: 5/5 strength in hip flexors, quadriceps, hamstrings, DF, PF, EHL bilaterally. Sensation to light touch intact in BLE. Calves soft, compressible, nontender and without palpable cords or masses. Low back dressing placed intraoperatively is CDI. Objective Labs Result Diagrams: 12/11/21 08:25 [facility] Medical History Arthritis Asthma Chronic bronchitis Elevated cholesterol GERD (gastroesophageal reflux disease) HTN (hypertension) Hx of ectopic Jaundice Numbness Pulmonary embolism (2004) SCC (squamous cell carcinoma) Sciatica Spinal stenosis Transfusion of blood product refused for baptism reason Surgical History History of arthroplasty of left knee (~2019) History of arthroplasty of right knee (2004) History of gynecologic surgery History of orthopedic surgery Hx of cholecystectomy Hx of dilation and curettage Hx of neck surgery (~2012) Hx of tonsillectomy Social History household members: none Smoking Status: Former smoker alcohol intake: current Discharge Assessment & Plan Assessment and Plan Assessment: s/p L3-4, L4-5 transforaminal lumbar interbody fusion w/ posterolateral instrumentation Plan of Treatment: Discharge to SNF. Discharge Plan Discharge Plan Patient Disposition: SNF Transfer to: [facility] Transportation: Facility vehicle I certify the postop hospital custodial care is medically necessary on a continuing basis for any conditions for which he/ she received care during this hospitalization.: Yes The receiving facility has agreed to accept transfer and provide medical treatment.: Yes Discharge orders & Medications Discharge Orders: Discharge (Order); Ordered 12/13/21 Ordered By: Esther Constantino Prescriptions: New acetaminophen 325 mg Tablet 650 mg PO Q6HR PRN (Reason: Pain, Mild (1-3)) Qty: 240 0RF docusate sodium 100 mg Capsule 100 mg PO BID PRN (Reason: constipation) Qty: 60 2RF hydroxyzine pamoate 25 mg Capsule 25 mg PO Q4HR PRN (Reason: muscle spasm) Qty: 120 1RF polyethylene glycol 3350 17 gram Powder In Packet 17 g PO BID PRN (Reason: laxative effect) Qty: 30 0RF oxycodone 5 mg tablet 5 mg PO Q4H PRN (Reason: pain (scale score 7-10)) Qty: 60 0RF Continued ipratropium-albuterol 0.5 mg-3 mg(2.5 mg base)/3 mL Solution For Nebulization 3 ml INHALATION BID-TID amlodipine 5 mg Tablet 5 mg PO QPM aspirin 81 mg Tablet,Delayed Release (Dr/Ec) 81 mg PO DAILY pantoprazole 20 mg Tablet,Delayed Release (Dr/Ec) 20 mg PO BEDTIME albuterol sulfate 90 mcg/actuation Hfa Aerosol Inhaler 2 puff INHALATION Q4-6H PRN (Reason: Shortness Of Breath) atenolol 50 mg Tablet 50 mg PO QPM ipratropium bromide 21 mcg (0.03 %) Fenton,Non-Aerosol 2 spray INTRANASAL BEDTIME Rx Instructions: administer into each nostril fluticasone furoate-vilanterol [Breo Ellipta] 200-25 mcg/dose Blister With Device 1 inh INHALATION DAILY Discontinued acetaminophen 500 mg Tablet 500 mg PO Q6H PRN (Reason: Pain) Label Comments: 1000mgs ibuprofen [Advil] 200 mg Tablet 200 mg PO TID-QID Follow up/Referrals: Rich Gutierrez MD [Physician] - As previously scheduled (Follow up w/ Rhys Flores PA-C, on 12/25/2021 @ 11:10 am at [facility] office in [place].) Miscellaneous,DoctorMD [Primary Care Provider] - Diet/Activity/Treatments Diet: Diet as Tolerated Activity: No bending more than 90 degrees at the waist. No twisting from side to side. No lifting more than 10 pounds. Cold/Heat Therapy: Ice to back as needed for pain. Skin/Wound/Dressing Care Report to your healthcare provider any signs of infection, such as:: chills, fever, night sweats, unusual drainage and unusual redness Dressing: May shower; keep dressing as dry as possible. May change dressing to clean, dry gauze if it becomes wet inside. No bathing or otherwise soaking incision. No creams, lotions, or ointments on incisions. [facility] Rehab type: Physical therapy and Occupational therapy Visit Report/Discharge Packet Instructions: DI for Transforaminal Lumbar Interbody Fusion Stand Alone Forms: Surgery Discharge Discharge Data Primary Care Provider: Miscellaneous,Doctor Attending Provider: Rich Gutierrez VTE Deep Vein Thrombosis/Pulmonary Embolism Present on Admission: No
[2021-12-13] MEDS: polyethylene glycoL 3350 17 GM POWD.PACK PO (09:28)
--- NOTE | 2021-12-13 10:34 | PT.IPTN ---
Current Diagnoses Spondylolisthesis, lumbar region (12/10/21) Spinal stenosis, lumbar region with neurogenic claudication (12/10/21) Arthrodesis status (12/10/21) Surgery Performed Operation Date: 12/10/21 07:45 Actual Procedures p L3-4, L4-5 TLIF w. posterior instrumentation, L2-3 hemilaminectomy -Robot - Rich Gutierrez MD Physical Therapy Treatment Note M2 PT-IP Current Condition Start: 12/11/21 12:29 Freq: NEEDED Status: Active Protocol: Document 12/11/21 10:10 AB (Rec: 12/11/21 12:42 AB [id number]) Physical Therapy Current Condition Current Condition Evaluation Date 12/11/21 Treatment Diagnosis s/p L3-4 TLIF; difficulty in walking Onset Date 12/10/21 M3 PT-IP Subjective Start: 12/11/21 12:29 Freq: NEEDED Status: Active Protocol: Document 12/13/21 10:14 KS (Rec: 12/13/21 12:48 KS [id number]) Subjective Physical Therapy Visit Type Type Treatment Note Visit Start Time 10:14 Visit Stop Time 10:34 Total Visit Minutes 20 Number of FRENCH TRANSLATOR Visits 3 Physical Therapy Visit Comments Patient Comments agreeable to do PT M4 PT-IP Mobility and Gait Start: 12/11/21 12:29 Freq: NEEDED Status: Active Protocol: Document 12/13/21 10:14 KS (Rec: 12/13/21 12:48 [place] [id number]) PT-Bed Mobility Assessment Rolling Type of Rolling Roll to Right Level of Assist Moderate Assistance Supine to Sit Supine to Sit Moderate Assistance,2 Person Assistance,Bedrails Scooting Scooting to Edge of Bed Contact Guard Assistance PT-Transfer Assessment Sit to and From Stand Sit to and from Stand Minimal Assistance,Moderate Assistance,1 Person Assistance ,Use of Upper Extremities Equipment Transfer Assistive Device Gait Belt,Front Wheeled Walker Orthotic/Prosthetic Devices or Brace: No Transfers Transfer Destination Bedside Commode Transfer Technique Pt ambulated w/ FWW Transfer Ability Level of Assist Moderate Assistance,1 Person Assistance,Use of Upper Extremities Comments Mobility Comments Pt in bed upon arrival and agreeable to mobilize w/ PT. Pt Mod A for logroll and Mod A x2 for sidelying<>sit. Able to scoot EOB CGA. Sit<>Stand Min/Mod A x1 w/ cues for hand placement and sequencing. Pt able to perform marching in place followed b 20 ft ambulation before become too fatigued to ambulate further. She transferred to [facility] Min A w / cues. Pt left on [facility] w/ all needs in reach. Gait Assessment Gait Gait Assistance Required: Contact Guard Assist,Minimum Assistance,1 Person Assist Distance (Feet) 20 Able to Maintain Weight Bearing Status Yes During Gait Assistive Devices Assistive Device Gait Belt,Front Wheeled Walker Orthotic/Prosthetic Devices or Brace: No Gait Deviations General Gait Pattern Decreased Stride Length, Decreased Feet Clearance,Step- to Gait Factors Limiting Gait Function Factors Limiting Gait Function Decreased Activity Tolerance, Decreased Strength,Difficulty Following Directions,Limited Range of Motion,Pain,Poor Balance,Poor Safety Awareness Comments Gait Comments Please refer to mobility section for details. PT-Balance Assessment Sitting Balance and Reactions Static Sitting Balance Ability Good Dynamic Sitting Balance Ability Fair Standing Balance and Reactions Static Standing Balance Ability Fair Dynamic Standing Balance Ability Fair Device Used FWW M5 PT-IP Objective Assessments Start: 12/11/21 12:29 Freq: NEEDED Status: Active Protocol: Document 12/11/21 10:10 AB (Rec: 12/11/21 12:42 AB [id number]) Orientation Orientation/Cognition Level of Alertness Alert Orientation Name,Place,Situation Language Function Ability Hard of Hearing Safety Awareness Decreased Safety Awareness Memory Description Short Term Impaired Gross Range of Motion Lower Extremity ROM Assessment Within Functional Limits Strength Lower Extremity Strength Assessment Bilaterally Impaired Comments Strength Comments RLE 4-/5 LLE: 3+/5 Muscle Tone Muscle Tone WNL Yes M6 PT-IP Treatment Start: 12/11/21 12:29 Freq: NEEDED Status: Active Protocol: Document 12/13/21 10:14 KS (Rec: 12/13/21 12:48 MA [id number]) Physical Therapy Treatment Education Education Provided Precautions,Safety M7 PT-IP Assessment and Plan Start: 12/11/21 12:29 Freq: NEEDED Status: Active Protocol: Document 12/13/21 10:14 KS (Rec: 12/13/21 12:48 KS [id number]) PT Summary Assessment and Plan Summary Impairments Pain,ROM,Strength,Balance, Coordination,Sensation,Tone, Cognition,Bed Mobility, Transfers,Gait,Activity Tolerance Progress Towards Goals Slow Progress due to Pain,Slow Progress due to Activity Tolerance Assessment Summary Pt showing progress today, but still requires up to Mod A x2 for bed mobility and Min to Mod A for sit<>stand w/ FWW. She also needs cues for safety and hand placement throughout treatment. She will require SNF to improve strength and functional mobility independence. Goals Bed Mobility Goal Standby Assistance Transfer Goal Standby Assistance,Front Wheeled Walker Gait Goal Standby Assistance,Four Wheel Walker Gait Distance 200 Days to Meet Goals 0 Frequency of Treatment Frequency Of Treatment Twice a Day Treatment Plan Physical Therapy Treatment Plan Bed Mobility Training,Transfer Training,Gait Training, Therapeutic Exercise,Balance Retraining,Post Op Education, Discharge Planning,Hot or Cold Pack,Neuromuscular Re-ed, Coordination Retraining,Manual Therapy Precautions Lumbar Precautions Log Roll,No Twisting,Limit Bending,Lifting Restriction of 10 lbs,Gait Belt above Incisional Area Recommendations To Nursing Amount of Assist Needed 1 Person Assist Discharge Recommendations PT Discharge Recommendations SNF Rehab Transportation Needs at Discharge Wheelchair/Cabulance
--- NOTE | 2021-12-13 10:43 | CM.DPC ---
DCP Cont: Pt is medically stable for discharge per PA. Pt to transport to [facility] SNF @ 1430 via [facility] transport. COVID Swab ordered. RN aware. COVID waiver signed. PASRR complete. All required documentation to be faxed to [facility] prior to pt discharge. RN-RN report number provided to RN. Sol Verdin RN/NELADP
[2021-12-13 10:53] LABS: COVID19 -Nasal RAPID Negative (Negative)
--- NOTE | 2021-12-13 12:46 | OT.IP.TRT ---
Current Diagnoses Spondylolisthesis, lumbar region (12/10/21) Spinal stenosis, lumbar region with neurogenic claudication (12/10/21) Arthrodesis status (12/10/21) Surgery Performed Operation Date: 12/10/21 07:45 Actual Procedures p L3-4, L4-5 TLIF w. posterior instrumentation, L2-3 hemilaminectomy -Robot - Rich Gutierrez MD Occupational Therapy Treatment Note M2 OT-IP Current Condition Start: 12/11/21 13:04 Freq: Status: Active Protocol: Document 12/11/21 11:47 [facility] (Rec: 12/11/21 13:28 [facility] [id number]) Occupational Therapy Current Condition Current Condition Evaluation Date 12/11/21 Treatment Diagnosis S/p L3-4, L4-5 TLIF Diagnosis Onset Date 12/10/21 Post Operative Precautions Lumbar Precautions Log Roll,No Twisting,Limit Bending,Lifting Restriction of 10 lbs,Gait Belt above Incisional Area M3 OT- IP Subjective and Pain Start: 12/11/21 13:04 Freq: Status: Active Protocol: Document 12/13/21 11:50 [facility] (Rec: 12/13/21 12:56 [facility] [id number]) OT- Subjective Occupational Therapy Visit Type Type Treatment Note Visit Start Time 11:50 Visit Stop Time 12:46 Total Visit Minutes 56 Occupational Therapy Visit Comments Patient Comments Pt wanting to shower and use the bathroom. Patient/Caregiver Goals To get better and be able to care for herself. OT Pain Assessment Pain When Pain Assessed During Mobility Pain Present Pain Present Pain Reported Location low back Intensity 6 Scale Used Numeric (0 - 10) M4 OT- IP ADL's Start: 12/11/21 13:04 Freq: Status: Active Protocol: Document 12/13/21 11:50 [facility] (Rec: 12/13/21 12:56 [facility] [id number]) OT [id number] General Evaluation Self-Feeding Ability Independent OT ADL-Grooming Comments OT Grooming Comments Not performed. OT ADL-Oral Care Comments Oral Care Comments Not performed. OT ADL-Dressing General Eval Lower Body Dressing Ability Moderate Assistance Areas Needing Assistance Socks Comments OT Dressing Comments Pt able to use the watch assembler to assist for LB dressing needs and at the end needing assist as getting too tired. OT ADL-Toileting General Evaluation Toileting Ability Minimal Assistance Comments OT Toileting Comments Assist to pull down the brief over her hips. Pt able to reach appropriately to wipe and follow her back precautions by leaning to the side. Pt states will wear brief/pads at night and aware wet wipe will be helpful to use. OT ADL-Bathing Bathing Type Bathing Type Shower General Evaluation Bathing Ability Moderate Assistance Areas Needing Assistance Wash/Dry Back,Wash/Dry Lower Extremities Comments OT Bathing Comments CGA while standing so pt able to do pericare needs in addition use of grab bar to assist for balance. M5 OT- IP IADL's Start: 12/11/21 13:04 Freq: Status: Active Protocol: Document 12/11/21 11:47 [facility] (Rec: 12/11/21 13:28 [facility] [id number]) OT-Instrumental Activities of Daily Living Deficits IADL Deficits Identified Deficits Home Safety Awareness Awareness of Need for Assistance at Home Good Awareness Home Safety Comments Pt a little groggy and needing reminders for her back precautions at this time. At this time due to decreased mobility and pain will need assist for all needs. Medication Management Medication Management Comments Prior pt states able to do on her own. Money Management Money Management Comments Prior pt states able to do on her own. Meal Preparation Meal Preparation Comments Prior pt states able to do on her own. Salvage Machine Operator Salvage Machine Operator Comments Prior pt states able to do on her own. M6 OT- IP Functional Cognition Start: 12/11/21 13:04 Freq: Status: Active Protocol: Document 12/13/21 11:50 [facility] (Rec: 12/13/21 12:56 [facility] [id number]) Cognitive Factors Limiting Selfcare Function Cognitive Ability Safety Awareness Decreased Ability to Apply Precautions Cognitive Comments Cognitive Assessment Comments Reminders to incorporate her back precautions during showering needs. Pt needing MOD safety cues for FWW use and back precautions. Pt tends to let go of the FWW too soon and cued to be sure to back all the way back to the recliner before sitting down. M7 OT- IP Mobility and Balance Start: 12/11/21 13:04 Freq: Status: Active Protocol: Document 12/13/21 11:50 [facility] (Rec: 12/13/21 12:56 [facility] [id number]) OT-Transfer Assessment Sit to and From Stand Sit to and from Stand Moderate Assistance,1 Person Assistance Transfers Transfer Ability Minimal Assistance,1 Person Assistance Technique Transfer Destination Chair,Shower Stall,Toilet Transfer Technique Stand Step Pivot Devices Transfer Assistive Devices Gait Belt,Front Wheeled Walker Comments Mobility Comments Much improved MODA x1 to stand to FWW and MICHAELA with FWW for steadying. OT- Balance Assessment Sitting Balance and Reactions Static Sitting Balance Ability Good Dynamic Sitting Balance Ability Good Standing Balance and Reactions Static Standing Balance Ability Fair Dynamic Standing Balance Ability Poor M8 OT- IP Objective Assessments Start: 12/11/21 13:04 Freq: Status: Active Protocol: Document 12/11/21 11:47 [facility] (Rec: 12/11/21 13:28 [facility] [id number]) OT-Muscle Tone Assessment Muscle Tone WNL Yes M9 OT- IP Assessment and Plan Start: 12/11/21 13:04 Freq: Status: Active Protocol: Document 12/13/21 11:50 [facility] (Rec: 12/13/21 12:56 [facility] [id number]) OT Summary Assessment and Plan Potential Rehabilitation Potential Good Analytic Complexity at Evaluation Low Summary OT Impairments Pain,Balance,Functional Cognition,Functional Mobility, Grooming,Dressing,Toileting, Bathing,Toilet Transfers, Shower Transfers,Activity Tolerance Progress Towards Goals Progressing Toward Goals Assessment Summary Pt making good improvements with the ADl and mobility needs and will greatly benefit from skilled rehab prior to going home. Pt is very motivated and cooperative. Goals Grooming Goal Independent Dressing Goal Independent Toileting Goal Independent Bathing Goal Independent Toilet Transfer Goal Independent Shower Transfer Goal Independent Days to Meet Goals 10 Frequency of Treatment Frequency Of Treatment Once a Day Treatment Plan OT Treatment Plan ADL Training,Functional Cognition Training,Functional Mobility,Patient/Family Education,Discharge Planning Discharge Recommendations OT Discharge Recommendations SNF Rehab Transportation Needs at Discharge Wheelchair/Cabulance
--- NOTE | 2021-12-13 14:40 | PC.NURSE ---
Day Shift Pt left unit at 1420, Pt has all personal property, all documentation in SNF packet. Packet is with SNF personal. Dressing was changed prior to discharge and remained CDI, CMS intact, Report given to Antoinette WALTER to RN at SNF at 1430.
== END 2021-12-13 14:45 ==
LOC: OR 06:18 → AC 06:19
PROVIDERS: Physician Assistant; Referring Provider Orthopaedic Surgery Orthopaedic Surgery of the Spine; Visit Provider Orthopaedic Surgery Orthopaedic Surgery of the Spine
PROC: (CPT 22633; principal; 2021-12-10 07:45)
DX: M48.062 Spinal stenosis, lumbar region with neurogenic claudication (principal); M54.16 Radiculopathy, lumbar region; M43.16 Spondylolisthesis, lumbar region; Z20.822 Contact with and (suspected) exposure to COVID-19; Z23 Encounter for immunization
CPT/HCPCS: 22633; 22634; 22853 ×2; 63052; 63053; 20939; 22842; 0013A; 72100; 76000; 82962; 85014; 85018; 87635; 91301; 93005; 94640; 97162; 97165; 97530; 97535; C9803; C1831; C9290; J0171; J0330; J0690; J1100; J1170; J2250; J2405; J2704; J3010; J3410; J7613